=== PATIENT | female | born 1950 | race Caucasian/White ===

== ENCOUNTER → 2020-09-04 14:19 | Outpatient (CLI) | payer MEDICARE, SELFPAY ==
--- NOTE | 2020-09-04 14:24 | XR_ITS ---
PROCEDURE: XR CERVICAL SPINE 3V CLINICAL INDICATION: neck pain COMPARISON: No exams were available for comparison FINDINGS: No fracture or dislocation. No lytic or blastic change. There is normal mineralization. There is degenerative disc disease at C4-C5 C5-C6 and C6-C7 with disc space narrowing and endplate osteophytes. There is 2 mm anterolisthesis of C3 on C4. Other findings:None. IMPRESSION: Cervical spondylosis as described above Dictated by: Azam Mckeon MD 09/04/2020 14:36 Azam Mckeon MD in [place] 09/04/2020 14:36
== END ==
PROVIDERS: PCP Family Medicine; Visit Provider Specialist
DX: M54.2 Cervicalgia (principal)
CPT/HCPCS: 72040

== ENCOUNTER → 2022-02-19 09:56 | Outpatient (CLI) | payer MEDICARE, SELFPAY ==
--- NOTE | 2022-02-19 09:57 | CT_ITS ---
FINAL REPORT TECHNIQUE: Thin section axial CT with IV contrast supplemented with multiplanar reconstruction under CT angiogram protocol. This study was performed with techniques to keep radiation doses as low as reasonably achievable (ALARA). Individualized dose reduction techniques using automated exposure control or adjustment of mA and/or kV according to the patient''s size were employed. NASCET criteria was utilized during interpretation. CLINICAL HISTORY: eval for posterior circulation FINDINGS: Aortic arch: Arch shows no significant narrowing. Great vessel origins are widely patent. Right carotid: No significant stenosis is seen of the cervical common or internal carotid artery. Left carotid: No significant stenosis is seen of the cervical common or internal carotid artery. Vertebral: Left vertebral artery is dominant. No significant stenosis is present. IMPRESSION: No significant stenosis. Reviewed, Interpreted and Dictated by Donaldo Redding III, MD Transcribed by Kalen Huggins Authenticated and [facility]
--- NOTE | 2022-02-19 09:57 | CT_ITS ---
FINAL REPORT TECHNIQUE: Thin section axial CT with IV contrast supplemented with multiplanar reconstruction under CT angiogram protocol. 3-D reconstructions were performed. This study was performed with techniques to keep radiation doses as low as reasonably achievable (ALARA). Individualized dose reduction techniques using automated exposure control or adjustment of mA and/or kV according to the patient''s size were employed. CLINICAL HISTORY: eval for posterior circulation FINDINGS: The distal vertebral, basilar and distal internal carotid arteries have an unremarkable appearance. No aneurysm is seen. Major intracranial vessels are patent without significant stenosis. The left vertebral artery is dominant. 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 IMPRESSION: No aneurysm or significant stenosis. Reviewed, Interpreted and Dictated by Donaldo Redding III, MD Transcribed by Kalen Huggins Authenticated and . [facility]
== END ==
PROVIDERS: PCP Family Medicine; Visit Provider Specialist
DX: G43.909 Migraine, unspecified, not intractable, without status migrainosus (principal); G45.9 Transient cerebral ischemic attack, unspecified; R20.0 Anesthesia of skin; R20.2 Paresthesia of skin; R47.1 Dysarthria and anarthria
CPT/HCPCS: 70496; 70498; Q9967

== ENCOUNTER → 2023-08-26 09:13 | Outpatient (CLI) | payer MEDICARE, OTHER, SELFPAY | LOC: SL 09:15 | PROVIDERS: PCP Family Medicine; Visit Provider Specialist | DX: G47.30 Sleep apnea, unspecified (principal); R06.83 Snoring | CPT/HCPCS: G0399 ==